=== PATIENT | female | born 1990 | race Caucasian/White ===

== ENCOUNTER → 2018-12-18 | Outpatient (CLI) | payer OTHER ==
[~2018-12-18] MED LIST: AMOXIL500 MG PO; BACTRIM DS 8001 TA1 PO; BENTYL20 MG PO; CIPROFLOXACIN500 MG PO; DONNATAL1 TAB PO; NKHM; PYRIDIUM200 MG PO; TRAMADOL HCL50 MG PO; ZITHROMAX Z PA250 MG PO
== END | disposition home or self-care (01) ==
LOC: US 09:47
DX: Z32.01 Encounter for pregnancy test, result positive (principal); Z3A.14 14 weeks gestation of pregnancy

== ENCOUNTER → 2022-08-28 | Outpatient (CLI) | payer OTHER ==
[2022-08-28 12:36] LABS: BASO # 0.1 10*3/uL (0.0-0.1); BASO % 0.8 % (0.0-1.0); EOS # 0.4 10*3/uL (0.0-0.4); EOS % 4.5 % (1.0-4.0); HEMATOCRIT 46.6 % (37.0-47.0); LYMPH # 2.1 10*3/uL (1.3-4.4); LYMPH % 22.8 % (27.0-41.0); MEAN CELL VOLUME 87.4 fl (81.0-99.0); MEAN CORPUSCULAR HGB 29.1 pg (27.0-31.0); MEAN CORPUSCULAR HGB CONC 33.3 g/dl (33.0-37.0); MEAN PLATELET VOLUME 10.6 fl (9.6-12.3); MONO # 0.7 10*3/uL (0.1-1.0); MONO % 7.6 % (3.0-9.0); NEUT # 5.8 10*3/uL (2.3-7.9); PLATELET COUNT AUTOMATED 230 10*3/uL (130-400); RED BLOOD COUNT 5.33 10*6/uL (4.10-5.10); RED CELL DISTRI WIDTH 13.2 % (0-14.5); WHITE BLOOD COUNT 9.1 10*3/uL (4.8-10.8)
[2022-08-28 12:55] LABS: ALKALINE PHOSPHATASE 91 U/L (46-116); CHLORIDE 102 mmol/L (98-107); CREATININE 0.53 mg/dL (0.55-1.02); SGPT/ALT 40 U/L (10-49); SODIUM 135 mmol/L (136-145); TOTAL PROTEIN 7.5 gm/dL (6.0-8.0)
[2022-08-28 12:56] LABS: ALKALINE PHOSPHATASE 92 U/L (46-116); BUN 7 mg/dl (9-23); CHLORIDE 101 mmol/L (98-107); CREATININE 0.54 mg/dL (0.55-1.02); POTASSIUM 3.9 mmol/L (3.4-5.1); SGPT/ALT 40 U/L (10-49); SODIUM 133 mmol/L (136-145); TRIGLYCERIDES 100 mg/dl (<150)
[2022-08-28 12:57] LABS: CHOLESTEROL 122 mg/dL (<200); LDL CHOLESTEROL 63 mg/dL (9-159); TOTAL PROTEIN 7.6 gm/dL (6.0-8.0)
[2022-08-29 07:03] LABS: HBSAG Negative (Negative); HEP B CORE AB, IGM Negative (Negative)
== END | disposition home or self-care (01) ==
LOC: LAB 11:45
PROVIDERS: Physician Assistant Medical; ATTEND Nurse Practitioner Family
DX: F14.11 Cocaine abuse, in remission (principal); F11.11 Opioid abuse, in remission; Z79.899 Other long term (current) drug therapy